=== PATIENT | female | born 1945 | race Caucasian/White ===

== ENCOUNTER 2022-01-02 13:20 | Outpatient (RCR) | payer MEDICARE, SELFPAY ==
[2022-01-02 13:41] VITALS: BP 110/70; PULSE 82; RESP 18; TEMP 36.5; O2SAT 98
[2022-01-02] MEDS: SODIUM CHLORIDE 0.9 % (FLUSH) 10 ML SYRINGE IVF (13:56)
[2022-01-02] MEDS: 0.9 % SODIUM CHLORIDE 1000 ml 1,000 ML 800 ML IV (13:56)
[2022-01-02] MEDS: HEPARIN 500 UNIT/5 ML SYRINGE IVF (15:35)
--- NOTE | 2022-01-28 09:12 | ONC.NURNOTE ---
Dx: Esophageal Cancer, and Dehydration.
== END 2022-07-01 23:59 | disposition home or self-care (01) ==
LOC: CCIC 13:20
PROVIDERS: PCP Family Medicine; Referring Provider Family Medicine; Visit Provider Internal Medicine Hematology & Oncology
DX: C15.9 Malignant neoplasm of esophagus, unspecified (principal); E86.0 Dehydration
CPT/HCPCS: 96360; J1642; J7030